=== PATIENT | male | born 1960 | race Caucasian/White ===

== ENCOUNTER 2024-05-25 10:33 | Emergency (ER) | payer MEDICAID, SELFPAY ==
[2024-05-25] MEDS ORDERED: Ipratropium/Albuterol 3 ML NEB ONE (11:16)
[2024-05-25] MEDS ORDERED: Azithromycin 250 MG TAB ONE (11:35)
[2024-05-25] MEDS ORDERED: predniSONE 20 MG TAB ONE (11:35)
== END 2024-05-25 11:50 | disposition home or self-care (01) ==
LOC: NAV ERS 10:33
DX: J44.1 Chronic obstructive pulmonary disease with (acute) exacerbation (principal); I10 Essential (primary) hypertension; F17.220 Nicotine dependence, chewing tobacco, uncomplicated; F17.210 Nicotine dependence, cigarettes, uncomplicated
CPT/HCPCS: J7512; J7620

== ENCOUNTER 2024-06-09 11:55 | Emergency (ER) | payer MEDICAID ==
[2024-06-09] MEDS ORDERED: Ipratropium/Albuterol 3 ML NEB ONE ×2 (12:33→13:54)
[2024-06-09] MEDS ORDERED: methylPREDNISolone Sod Succ/PF 125 MG/2 ML VIAL ONE (12:33)
[2024-06-09 13:00] LABS: ALT (SGPT) 101 U/L (8-55); AST (SGOT) 59 U/L (5-34); Albumin 3.3 g/dL (3.4-4.8); Alkaline Phosphatase 54 U/L (40-110); Anion Gap 13 mmol/L (10-20); BUN (Urea Nitrogen) 16 mg/dL (8.4-25.7); Bilirubin, Total 0.4 mg/dL (0.2-1.2); Calc. Creatinine Clearance 0 mL/min (70-130); Calcium 9.2 mg/dL (7.8-10.44); Carbon Dioxide 20 mmol/L (23-31); Chloride 107 mmol/L (98-107); Estimated GFR 97; Glucose 109 mg/dL (80-115); Potassium 4.3 mmol/L (3.5-5.1); Protein, Total 7.3 g/dL (5.8-8.1); Sodium 136 mmol/L (136-145); Troponin I Less than 0.010 ng/mL (< 0.028)
[2024-06-09] MEDS ORDERED: Sodium Chloride 0.9% 1,000 ML ONE (13:11)
[2024-06-09 13:50] LABS: #Basophils 0.05 10x3/uL (0.0-0.2); #Eosinphils 0.24 10x3/uL (0.0-0.5); #Monocytes 0.52 10x3/uL (0.0-1.1); #Neutrophils 4.07 10x3/uL (1.5-8.4); %Basophils 0.7 % (0.0-2.0); %Eosinophils 3.3 % (0.0-6.0); %Lymphocytes 32.4 % (18.0-47.0); %Monocytes 7.2 % (0.0-10.0); %Neutrophils 56.1 % (40.0-75.0); Hematocrit 48.5 % (38.8-50.0); Hemoglobin 16.1 g/dL (13.5-17.5); Mean Corpuscular HGB CONC 33.2 g/dL (32.0-36.0); Mean Corpuscular Hemoglobin 28.8 pg (27.0-33.0); Mean Corpuscular Volume 86.6 fL (81.2-95.1); Mean Platelet Volume 13.1 fL (7.4-10.4); Platelet Count 80 10x3/uL (150-450); RBC Distribution Width 14.9 % (11.5-14.5); White Blood Cell (WBC) Count 7.3 10x3/uL (3.5-10.5)
[2024-06-09 13:52] LABS: #Lymphocytes 2.4 10x3/uL (0.7-4.9)
[2024-06-09 14:40] LABS: Anisocytosis SLIGHT = 6-15 cells (100X) (0-5/hpf)
[2024-06-09 14:41] LABS: Giant Platelets SLIGHT HPF (0-5); Platelet Adequacy Comment Appears Decreased; Platelet Clumps SLIGHT
[2024-06-09 15:16] LABS: SARS-CoV-2 E Target Negative; SARS-CoV-2 N2 Target Negative; SARS-CoV-2 NAA Rapid Test Not Detected (NotDetected); SARS-CoV-2 RdRP gene Negative
== END 2024-06-09 14:15 | disposition home or self-care (01) ==
LOC: NAV ERS 11:55
DX: J44.1 Chronic obstructive pulmonary disease with (acute) exacerbation (principal); J06.9 Acute upper respiratory infection, unspecified; I10 Essential (primary) hypertension; F17.210 Nicotine dependence, cigarettes, uncomplicated; F17.220 Nicotine dependence, chewing tobacco, uncomplicated
CPT/HCPCS: 36415; 71045; 80053; 83880; 84484; 85025; 93005; 94640; 94760; 96361; 96374; J2930; J7030; J7620; U0002

== ENCOUNTER 2024-07-08 10:09 | Outpatient (CLI) | payer OTHER, MEDICAID | END 2024-07-08 10:10 | disposition home or self-care (01) | LOC: NAV RAD 10:09 | PROVIDERS: ATTEND Family Medicine | DX: J44.9 Chronic obstructive pulmonary disease, unspecified (principal) | CPT/HCPCS: 71046 ==

== ENCOUNTER 2025-09-12 12:17 | Emergency (ER) | payer MEDICAID | END 2025-09-12 13:47 | disposition home or self-care (01) | LOC: NAV ERS 12:17 | DX: B34.9 Viral infection, unspecified (principal); I10 Essential (primary) hypertension; J44.89 Other specified chronic obstructive pulmonary disease; F17.210 Nicotine dependence, cigarettes, uncomplicated; F17.220 Nicotine dependence, chewing tobacco, uncomplicated; Z79.51 Long term (current) use of inhaled steroids | CPT/HCPCS: 87428; 99283 ==